=== PATIENT | female | born 1990 ===

== ENCOUNTER 2018-06-21 15:16 | Emergency (ER) | payer BC ==
[2018-06-21 15:28] VITALS: RESP 18; TEMP 98.8; O2SAT 99
--- NOTE | 2018-06-21 15:54 | ED PDOC ---
HPI: Headache Time Seen by Provider: 06/21/18 15:33 Chief Complaint (Nursing): Trauma Chief Complaint (Provider): headache History Per: Patient History/Exam Limitations: no limitations Onset/Duration Of Symptoms: Days (x4) Current Symptoms Are (Timing): Still Present Preceeding Symptoms: None Associated Symptoms: Nausea. denies: Photophobia, Blurred Vision, Vomiting, Extremity Weakness Additional Complaint(s): Nena Morley is a 28 year old female, with no significant past medical history, who presents to the emergency department complaining of a constant headache s/p fall x4 days ago. Patient states she tripped, fell backwards and landed flat on her back while hiking. She denies any head injuries or LOC at the time of injury but has had a headache since then. Patient reports headache starts at the back and radiates to the top of the head. Patient also reports feeling slow yesterday and this morning prompting ED visit today. She states headache is not the worst of her life. She took Ibuprofen for symptoms, last dose this morning. She is also complaining of nausea but states its not new. She denies any numbness or tingling, weakness, dizziness, neck pain, shortness of breath, chest pain, face pain, arm or leg pain, vomit, diarrhea, abdominal pain, vision changes, cough, congestion, fever, chills, new food or medications. No further medical complaints. PMD: Patricio Morley Past Medical History Reviewed: Historical Data, Nursing Documentation, Vital Signs Vital Signs: Last Vital Signs Temp 98.8 F 06/21/18 15:21 Pulse 90 06/21/18 15:21 Resp 18 06/21/18 15:21 BP 154/96 H 06/21/18 15:21 Pulse Ox 99 06/21/18 15:21 - Medical History PMH: No Chronic Diseases - Surgical History Surgical History: No Surg Hx - Family History Family History: States: Unknown Family Hx - Social History Current smoker - smoking cessation education provided: No Alcohol: None Drugs: Denies - Home Medications Home Medications: Ambulatory Orders Medication Instructions Recorded Ondansetron [Zofran] 4 mg PO Q8H PRN #6 tab 06/21/18 - Allergies Allergies/Adverse Reactions: Allergies Allergy/AdvReac Type Severity Reaction Status Date / Time No Known Allergies Allergy Verified 06/21/18 15:21 Review of Systems ROS Statement: Except As Marked, All Systems Reviewed And Found Negative Constitutional: Negative for: Fever, Chills Eyes: Negative for: Vision Change ENT: Negative for: Nose Congestion Cardiovascular: Negative for: Chest Pain Respiratory: Negative for: Cough, Shortness of Breath Gastrointestinal: Positive for: Nausea. Negative for: Vomiting, Abdominal Pain, Diarrhea Musculoskeletal: Negative for: Neck Pain, Arm Pain, Back Pain, Leg Pain Neurological: Positive for: Headache. Negative for: Weakness, Numbness (tingling), Dizziness Physical Exam - Reviewed Nursing Documentation Reviewed: Yes Vital Signs Reviewed: Yes - Physical Exam Appears: Positive for: No Acute Distress Head Exam: Positive for: ATRAUMATIC (No hematoma or gross trauma), NORMAL INSPECTION, NORMOCEPHALIC Skin: Positive for: Normal Color, Warm, Dry Eye Exam: Positive for: Normal appearance, EOMI, PERRL ENT: Positive for: Normal ENT Inspection Neck: Positive for: Normal, Painless ROM, Supple Cardiovascular/Chest: Positive for: Regular Rate, Rhythm. Negative for: Murmur Respiratory: Positive for: Normal Breath Sounds. Negative for: Respiratory Distress Gastrointestinal/Abdominal: Positive for: Normal Exam, Soft. Negative for: Tenderness, Guarding, Rebound Back: Positive for: Normal Inspection. Negative for: L CVA Tenderness, R CVA Tenderness, Vertebral Tenderness Extremity: Positive for: Normal ROM (upper and lower extremities). Negative for: Tenderness, Deformity, Swelling Neurologic/Psych: Positive for: Alert, warehouse puller II-XII (intact), Oriented (x3), Cerebellar Tests (normal), Gait (steady). Negative for: Motor/Sensory Deficits, Aphasia, Facial Droop - Laboratory Results Result Diagrams: 06/21/18 16:26 06/21/18 16:26 Interpretation Of Abn Labs: no acute - ECG O2 Sat by Pulse Oximetry: 99 (RA) Pulse Ox Interpretation: Normal - Progress ED Course And Treament: 1712: Stable. AAOx3. Pt. father is a physician and at bedside. Agrees with plan. Fu outpt. No pain currently. Ambulated with no issues. Medical Decision Making Medical Decision Making: Time: 15:33 Initial Impression: Headache Initial Plan: --Head w/o contrast [CT] --CMP --Urine --CBC w/ differential --Sodium Chloride 1,000 ml IV 1,000 mls/hr --Tylenol 325 mg tab 650 mg PO --Zofran Inj 4 mg IV --Reevaluation Scribe Attestation: Documented by Mike Cabral, acting as a scribe for Huy Hannon MD. Provider Scribe Attestation: All medical record entries made by the Scribe were at my direction and personally dictated by me. I have reviewed the chart and agree that the record accurately reflects my personal performance of the history, physical exam, medical decision making, and the department course for this patient. I have also personally directed, reviewed, and agree with the discharge instructions and d isposition. Disposition - Clinical Impression Clinical Impression: Head injury - Patient ED Disposition Is Patient to be Admitted: No Counseled Patient/Family Regarding: Studies Performed, Diagnosis, Need For Followup, Rx Given - Disposition Referrals: [facility] [Outside] - 06/22/18 Disposition: Routine/Home Disposition Time: 17:13 Condition: STABLE Additional Instructions: Return if not better in 3 days. Prescriptions: Ondansetron [Zofran] 4 mg PO Q8H PRN #6 tab PRN Reason: Nausea/Vomiting Instructions: Closed Head Injury (DC) Forms: [employer] (Spanish), [facility] ED School/Work Excuse
[2018-06-21] MEDS: Sodium Chloride 0.9% 1,000 ML IV STA (16:05)
--- NOTE | 2018-06-21 16:27 | CT ---
Date of service: 06/21/2018 PROCEDURE: CT HEAD WITHOUT CONTRAST. HISTORY: headache COMPARISON: Not available TECHNIQUE: Axial computed tomography images were obtained through the head/brain without intravenous contrast. Radiation dose: Total exam DLP = 652.42 mGy-cm. This CT exam was performed using one or more of the following dose reduction techniques: Automated exposure control, adjustment of the mA and/or kV according to patient size, and/or use of iterative reconstruction technique. FINDINGS: HEMORRHAGE: No intracranial hemorrhage. BRAIN: No mass effect or edema. No atrophy or chronic microvascular ischemic changes. VENTRICLES: No hydrocephalus. Incidental cavum septum pellucidum. CALVARIUM: Unremarkable. PARANASAL SINUSES: Unremarkable as visualized. No significant inflammatory changes. MASTOID AIR CELLS: Unremarkable as visualized. No inflammatory changes. OTHER FINDINGS: None. IMPRESSION: No intracranial hemorrhage. Unremarkable examination.
[2018-06-21 16:32] LABS: BASO % 0.7 % (0.0-2.0); EOS # 0.1 K/uL (0.0-0.7); EOS % 2.1 % (0.0-4.0); HEMOGLOBIN 12.9 g/dL (12.0-16.0); LYMPH # 1.8 K/uL (1.0-4.3); LYMPH % 25.3 % (20.0-40.0); MEAN CELL VOLUME 84.4 fl (81.0-99.0); MEAN CORPUSCULAR HEMOGLOBIN 28.7 pg (27.0-31.0); MEAN PLATELET VOLUME 8.2 fl (7.2-11.7); MONO # 0.6 K/uL (0.0-0.8); MONO % 8.4 % (0.0-10.0); NEUT # 4.4 K/uL (1.8-7.0); NEUT % 63.5 % (50.0-75.0); NRBC % 0.1 % (0.0-0.0); RBC 4.51 Mil/uL (3.80-5.20); RED CELL DISTRIBUTION WIDTH 13.4 % (11.5-14.5)
[2018-06-21 16:45] LABS: ALB/GLOB RATIO 1.3 (1.0-2.1); ALBUMIN 4.4 g/dL (3.5-5.0); ALT/SGPT 33 U/L (9-52); AST/SGOT 29 U/L (14-36); BLOOD UREA NITROGEN 13 mg/dl (7-17); CALCIUM 9.2 mg/dL (8.4-10.2); GFR NON-AFRICAN AMERICAN > 60
[2018-06-21 18:04] VITALS: BP 149/88; PULSE 82
== END 2018-06-21 17:50 | disposition home or self-care (01) ==
LOC: H.ER 15:16 → MERGE 15:16 → H.ER 17:50
DX: S09.90XA Unspecified injury of head, initial encounter (principal); W19.XXXA Unspecified fall, initial encounter; Y92.89 Other specified places as the place of occurrence of the external cause
CPT/HCPCS: 70450; 80053; 81025; 85025; 99285; J7030